=== PATIENT | male | born 1970 | race Two or more races ===

== ENCOUNTER 2020-12-14 08:36 | Outpatient (REF) | payer MEDICARE, MEDICAID, SELFPAY ==
[2020-12-14 09:12] LABS: COVID-19 Test Negative (Negative)
== END 2020-12-14 08:37 | disposition home or self-care (01) ==
LOC: HO.LAB 08:36
PROVIDERS: Visit Provider Internal Medicine
DX: Z20.822 Contact with and (suspected) exposure to COVID-19 (principal)
CPT/HCPCS: 36415; 87635; C9803

== ENCOUNTER 2020-12-22 11:17 | Outpatient (REF) | payer MEDICARE, MEDICAID, SELFPAY | END 2020-12-22 11:18 | disposition home or self-care (01) | LOC: HO.LAB 11:17 | PROVIDERS: Visit Provider Internal Medicine | DX: Z20.822 Contact with and (suspected) exposure to COVID-19 (principal) | CPT/HCPCS: C9803; U0003; U0005 ==

== ENCOUNTER 2020-12-22 23:41 | Inpatient (IN) | payer MEDICARE, MEDICAID, SELFPAY ==
--- NOTE | ~2020-12-22 | CT_ITS ---
EXAMINATION: CT ABDOMEN AND PELVIS WITH CONTRAST CLINICAL INFORMATION: Periumbilical/right lower quadrant pain COMPARISON: None TECHNIQUE: Multidetector volumetric images were obtained from the superior aspect of the liver through the pubic symphysis following administration 85 mL of Omnipaque 350 intravenous contrast. Sagittal and coronal reformatted images were obtained on the technologist's workstation. Oral contrast: No This CT examination was performed using dose optimization techniques as appropriate, variously including the following: *Automated exposure control *Adjustment of mA and/or kV according to patient size (this includes techniques or standardized protocols for targeted exams where dose is matched to indication/reason for exam; i.e. extremities or head) *Use of iterative reconstruction technique DLP: 408 mGy-cm FINDINGS: LUNG BASES: The visualized lung bases are unremarkable. LIVER, GALLBLADDER, AND BILIARY TREE: The liver is normal in size, shape, and attenuation. No focal hepatic lesion or biliary ductal dilatation is present. The gallbladder is unremarkable with no evidence of radiopaque gallstones, gallbladder wall thickening, or obvious pericholecystic inflammatory changes. PANCREAS: Unremarkable. SPLEEN: Unremarkable. ADRENAL GLANDS: Unremarkable. KIDNEYS AND URETERS: The kidneys are normal in size, shape, and attenuation. No hydronephrosis, hydroureter, or calculi seen. No perinephric stranding. BLADDER: The bladder is partially distended with circumferential mild wall thickening. GASTROINTESTINAL TRACT: The stomach is unremarkable. Normal caliber small bowel. There is no obstruction. Abnormal appearance of the appendix. The appendix measures 0.9 cm in diameter. Wall thickening of the appendix with mild adjacent inflammatory change of the fat. Otherwise no colonic wall thickening or inflammatory change. No free air. No fluid collection. ABDOMINAL WALL: No significant hernia is appreciated. LYMPH NODES: Normal. VASCULAR: Normal caliber aorta with mild atherosclerotic calcification. PELVIC VISCERA: The prostate and seminal vesicles are unremarkable. OSSEOUS STRUCTURES: No acute or suspicious osseous abnormality. Mild degenerative change of the spine. CT/CT abdomen pelvis w con IMPRESSION: Acute appendicitis. No free air or fluid collection.
[2020-12-23] VITALS (17 sets, daily range): BP systolic 108–143; BP diastolic 56–80; PULSE 54–90; RESP 16–20; TEMP 36.4–36.9; O2SAT 95–100; BMI 22.8
--- NOTE | 2020-12-23 03:19 | ED.ABDPAIN ---
HPI - Abdominal Pain General Chief Complaint: Abdominal Pain Stated Complaint: ABD PAIN Time Seen by Provider: 12/23/20 00:39 Source: patient Mode of arrival: ambulatory History of Present Illness HPI narrative: 50-year-old male without significant past medical history except lifelong seizures who presents with periumbilical/right lower quadrant pain that started earlier today after patient ate [place] food and he suspected possible food contamination. However, he denies any nausea and vomiting (other than forcing himself to vomit because he felt like he needed to) as well as denies any diarrhea or urinary symptoms. Or patient states that the pain is intense and has persisted. Related Data Allergies Allergy/AdvReac Type Severity Reaction Status Date / Time No Known Allergies Allergy Verified 12/23/20 00:36 [No Known Allergies*] Review of Systems Review of Systems Pertinent positives and negatives as stated in HPI 10 point review systems is otherwise negative. Physical Exam Vital Signs: Vital Signs: Last Vital Signs Temp 98.5 F 12/23/20 04:50 Pulse 85 12/23/20 04:50 Resp 16 12/23/20 04:50 BP 139/73 12/23/20 04:50 Pulse Ox 97 12/23/20 04:50 Body Mass Index 22.8 VITAL SIGNS: Reviewed. GENERAL: Well developed, well nourished, in no acute distress. HEAD: Normocephalic/atraumatic EYES: PERRLA, EOMI OROPHARYNX: no oral lesions noted, posterior pharynx clear NECK: Supple, no adenopathy LUNGS: Normal breath sounds. No adventitious sounds or accessory muscle use. SpO2<98> CARDIOVASCULAR: Regular rate and rhythm without noted murmurs ABDOMEN: Soft, tenderness at periumbilical as well as with Kaley is without rebound, non-distended with bowel sounds. NEUROLOGIC: Alert and oriented x 4. Course Course Course Narrative: 50-year-old male with history and clinical presentation consistent with appendicitis and less likely renal colic. Review of all investigations of findings consistent with acute appendicitis, non perforated. This case was discussed with surgical services who is agreeable for admission. MDM - Abdominal Pain Lab Data Result diagrams: 12/23/20 03:39 12/23/20 03:39 Labs: Lab Results 12/23/20 12/23/20 12/23/20 Range/Units 03:39 03:39 03:39 WBC 15.6 H (4.8-10.8) X10*3/uL RBC 4.75 (4.60-5.80) X10*6/uL Hgb 14.5 (14.0-18.0) g/dl Hct 42.9 (42-52) % MCV 90.3 (80-98) fL MCH 30.5 (27.0-33.0) pg MCHC 33.8 (31.0-36.0) g/dl RDW 14.1 (11.0-16.0) % Plt Count 273 (160-400) X10*3/uL MPV 9.5 (9.4-12.4) fL Immature Gran % (Auto) 0.3 (0.0-0.4) % Neut % (Auto) 74.3 H (45-73) % Lymph % (Auto) 15.8 L (20-40) % [place] % (Auto) 7.3 (2-11) % Eos % (Auto) 1.8 (0-4) % Baso % (Auto) 0.5 (0-2) % Lymph # (Auto) 2.5 (1.2-4.9) X10*3/uL [place] # (Auto) 1.1 (0.1-1.2) X10*3/uL Eos # (Auto) 0.3 (0.0-0.4) X10*3/uL Baso # (Auto) 0.1 (0.0-0.2) X10*3/uL Abs Immat Gran (auto) 0.05 H (0.00-0.03) X10*3/uL Absolute Neuts (auto) 11.6 H (2.0-8.3) X10*3/uL Absolute Nucleated RBC 0.000 (0.0-0.012) X10*3/uL Nucleated RBC % (auto) 0.0 (0.0-0.2) /100WBC PT (10.8-13.0) SEC INR (0.9-1.1) Sodium 140 (135-145) mmol/L Potassium 4.4 (3.3-5.1) mmol/L Chloride 103 (96-108) mmol/L Carbon Dioxide 29 (22-29) mmol/L Anion Gap 12 (12-20) BUN 24 H (9-16) mg/dL Creatinine 1.21 (0.5-1.4) mg/dL Estim Creat Clear Calc 71.8 Estimated GFR > 60 Random Glucose 101 (60-115) mg/dL Calcium 9.8 (8.4-10.2) mg/dL Magnesium (1.6-2.6) mg/dL Total Bilirubin 0.4 (0.0-1.0) mg/dL AST 27 (5-37) U/L ALT 17 (0-40) U/L Alkaline Phosphatase 82 (39-117) U/L Total Protein 7.5 (6.5-8.0) g/dL Albumin 4.4 (3.5-5.0) g/dL Lipase 243 H (8-78) U/L 12/23/20 12/23/20 Range/Units 03:39 03:39 WBC (4.8-10.8) X10*3/uL RBC (4.60-5.80) X10*6/uL Hgb (14.0-18.0) g/dl Hct (42-52) % MCV (80-98) fL MCH (27.0-33.0) pg MCHC (31.0-36.0) g/dl RDW (11.0-16.0) % Plt Count (160-400) X10*3/uL MPV (9.4-12.4) fL Immature Gran % (Auto) (0.0-0.4) % Neut % (Auto) (45-73) % Lymph % (Auto) (20-40) % [place] % (Auto) (2-11) % Eos % (Auto) (0-4) % Baso % (Auto) (0-2) % Lymph # (Auto) (1.2-4.9) X10*3/uL [place] # (Auto) (0.1-1.2) X10*3/uL Eos # (Auto) (0.0-0.4) X10*3/uL Baso # (Auto) (0.0-0.2) X10*3/uL Abs Immat Gran (auto) (0.00-0.03) X10*3/uL Absolute Neuts (auto) (2.0-8.3) X10*3/uL Absolute Nucleated RBC (0.0-0.012) X10*3/uL Nucleated RBC % (auto) (0.0-0.2) /100WBC PT 12.5 (10.8-13.0) SEC INR 1.1 (0.9-1.1) Sodium (135-145) mmol/L Potassium (3.3-5.1) mmol/L Chloride (96-108) mmol/L Carbon Dioxide (22-29) mmol/L Anion Gap (12-20) BUN (9-16) mg/dL Creatinine (0.5-1.4) mg/dL Estim Creat Clear Calc Estimated GFR Random Glucose (60-115) mg/dL Calcium (8.4-10.2) mg/dL Magnesium 1.9 (1.6-2.6) mg/dL Total Bilirubin (0.0-1.0) mg/dL AST (5-37) U/L ALT (0-40) U/L Alkaline Phosphatase (39-117) U/L Total Protein (6.5-8.0) g/dL Albumin (3.5-5.0) g/dL Lipase (8-78) U/L Discharge Plan Discharge Clinical Impression: Acute appendicitis Patient Disposition: Admitted As Inpatient [facility] Past Medical History Source: nursing notes reviewed Medical History Seizures Social History Social History Alcohol intake: former Smoking Status: Current every day smoker Smoked in Last 30 Days: Yes Use of substances other than those prescribed or required for medical reasons: No Advance Directives: No
[2020-12-23 03:46] LABS: Basophils Absolute Auto 0.1 X10*3/uL (0.0-0.2); Basophils Percent Auto 0.5 % (0-2); Eosinophils Absolute Auto 0.3 X10*3/uL (0.0-0.4); Eosinophils Percent Auto 1.8 % (0-4); Hematocrit 42.9 % (42-52); Hemoglobin 14.5 g/dl (14.0-18.0); Imm Gran Abs Auto 0.05 X10*3/uL (0.00-0.03); Imm Gran Pct Auto 0.3 % (0.0-0.4); Lymphocytes Absolute Auto 2.5 X10*3/uL (1.2-4.9); Lymphocytes Percent Auto 15.8 % (20-40); MANUAL DIFF FLAG NO; Mean Corpuscular HGB Conc 33.8 g/dl (31.0-36.0); Mean Corpuscular Hemoglobin 30.5 pg (27.0-33.0); Mean Corpuscular Volume 90.3 fL (80-98); Mean Platelet Volume 9.5 fL (9.4-12.4); Monocytes Absolute Auto 1.1 X10*3/uL (0.1-1.2); Monocytes Percent Auto 7.3 % (2-11); Neutrophils Absolute Auto 11.6 X10*3/uL (2.0-8.3); Neutrophils Percent Auto 74.3 % (45-73); Platelet Count 273 X10*3/uL (160-400); Red Blood Count 4.75 X10*6/uL (4.60-5.80); Red Cell Distribution Width 14.1 % (11.0-16.0); White Blood Count 15.6 X10*3/uL (4.8-10.8)
[2020-12-23 03:52] LABS: INTERNATIONAL NORM RATIO 1.1 (0.9-1.1); Prothrombin Time 12.5 SEC (10.8-13.0)
--- NOTE | 2020-12-23 04:01 | PC.NURSE ---
IV inserted into right AC.
[2020-12-23 04:13] LABS: Alanine Aminotransferase 17 U/L (0-40); Albumin Level 4.4 g/dL (3.5-5.0); Alkaline Phosphatase 82 U/L (39-117); Anion Gap 12 (12-20); Aspartate Amino Transferase 27 U/L (5-37); Bilirubin Total 0.4 mg/dL (0.0-1.0); Blood Urea Nitrogen 24 mg/dL (9-16); Calcium 9.8 mg/dL (8.4-10.2); Carbon Dioxide 29 mmol/L (22-29); Chloride 103 mmol/L (96-108); Creatinine Clr Calc Pharmacy 71.8; Estimated Glomerular Filt Rate > 60; Glucose Random 101 mg/dL (60-115); Magnesium 1.9 mg/dL (1.6-2.6); Potassium 4.4 mmol/L (3.3-5.1); Sodium 140 mmol/L (135-145); Total Protein 7.5 g/dL (6.5-8.0)
[2020-12-23 04:31] LABS: Lipase 243 U/L (8-78)
[2020-12-23] MEDS: iohexoL 350 MG/ML 100 ML INFUS..BTL 85 ML IV (04:33)
--- NOTE | 2020-12-23 05:09 | PM.HPGS ---
History of Present Illness History of Present Illness Date of Service: 12/23/20 Chief complaint: ACUTE APPENDICITIS Narrative: Bret Toledo is a 50 year old male presenting with complaints of abdominal pain in the periumbilical region radiating to the right lower quadrant. Exam in the ED revealed tenderness in the right lower quadrant. WBC elevated to 15K. CT of the abdomen positive for inflammation of the appendix consistent for acute appendicitis, no free air. Review of Systems Constitutional: Constitutional: Denies chills, Denies fever(s), Denies headache(s) and Denies poor appetite ENT: Denies dizziness and Denies headache(s) Cardiovascular: Cardiovascular: Denies chest pain, Denies rapid heart rate, Denies palpitations and Denies slow heart rate Respiratory: Respiratory: Denies chest congestion, Denies cough, Denies pain on inspiration and Denies wheezing Gastrointestinal: Gastrointestinal: Reports abdominal pain, Denies bloating, Denies change in stool character, Denies constipation, Denies diarrhea, Reports nausea, Reports vomiting and Denies hematemesis Musculoskeletal: Musculoskeletal: Denies back pain, Denies arthralgias, Denies joint swelling and Denies numbness Integumentary/Breasts: Skin/Breast: Denies change in pigmentation, Denies erythema and Denies rash Neurologic: Denies dizziness, Denies headache(s) and Denies numbness Psychiatric: Psychiatric: Denies anxiety and Denies depression Endocrine: Endocrine: Denies palpitations Hematologic/Lymphatic: Hematologic/Lymphatic: Denies easy bleeding, Denies easy bruising and Denies lymphadenopathy Allergic/Immunologic: Allergic/Immunologic: Denies wheezing PMFSH Past Medical History Medical History Seizures Social History Social History Alcohol intake: former Smoking Status: Current every day smoker Smoked in Last 30 Days: Yes Use of substances other than those prescribed or required for medical reasons: No Have you been hit, kicked, punched, or otherwise hurt by someone within the past year? If so, by whom?: No Advance Directives: No Meds Allergies Allergy/AdvReac Type Severity Reaction Status Date / Time No Known Allergies Allergy Verified 12/23/20 00:36 [No Known Allergies*] Active Medications: Current Medications Generic Name Dose Route Start Last Admin Trade Name Freq PRN Reason Stop Dose Admin Piperacillin Sod/Tazobactam 50 mls @ 100 mls/hr 12/23/20 04:49 Sod 3.375 gm/ Sodium Chloride IV 12/23/20 05:18 ONCE ONE Sodium Chloride 1,000 mls @ 999 mls/hr 12/23/20 04:58 Ns IV 12/23/20 05:58 .Q1H1M STA Physical Exam Vital Signs: Vital Signs: Last Vital Signs Temp 98.5 F 12/23/20 04:50 Pulse 85 12/23/20 04:50 Resp 16 12/23/20 04:50 BP 139/73 12/23/20 04:50 Pulse Ox 97 12/23/20 04:50 Body Mass Index 22.8 Const: General: cooperative, comfortable and well developed Nutritional Appearance: well nourished Orientation/consciousness: patient oriented x3 Eyes: Sclerae: sclerae normal EOM: EOMs intact bilaterally Neck: Neck: Yes normal visual inspection Resp: Effort & Inspection: normal respiratory effort, no cough, no respiratory distress and no stridor Cardio: Jugular venous distension: no JVD GI: Inspection: Yes normal to inspection Palpation (GI): Soft to palpation, Tenderness to palpation present (GI) in the RLQ, at McBurney's point and Rovsing's sign positive, Guarding due to palpation present (GI) and Rigid due to palpation Skin: General skin exam: dry skin Rashes: no rashes Neuro: General: patient oriented x3 and no focal motor deficits Extrem: General: Yes full ROM and Yes no clubbing, cyanosis or edema Psych: Appearance: grossly normal Results Results Labs: Short CBC 12/23/20 Range/Units 03:39 WBC 15.6 H (4.8-10.8) X10*3/uL Hgb 14.5 (14.0-18.0) g/dl Hct 42.9 (42-52) % Plt Count 273 (160-400) X10*3/uL BMP 12/23/20 03:39 Sodium 140 Potassium 4.4 Chloride 103 Carbon Dioxide 29 BUN 24 H Creatinine 1.21 Calcium 9.8 Liver Function 12/23/20 Range/Units 03:39 Total Bilirubin 0.4 (0.0-1.0) mg/dL AST 27 (5-37) U/L ALT 17 (0-40) U/L Alkaline Phosphatase 82 (39-117) U/L Albumin 4.4 (3.5-5.0) g/dL Assessment and Plan (1) Acute appendicitis: Status: Acute 50 year old male patient presenting with complaints of abdominal pain in the right lower quadrant, found to have an elevated WBC and appendicitis by CT. Reviewed the findings in detail with the patient and recommended a laparoscopic or possible open appendectomy. After discussion of the procedure, risks, and alternatives, he consents to the surgery. He will be added onto the operative schedule for today.
[2020-12-23] MEDS: Piperacillin Sodium/Tazobactam 3.375 GM in 0.9 % Sodium Chloride 50 ML IV ×2 (05:43→11:46)
[2020-12-23] MEDS: ondansetron HCL 4 MG/2 ML VIAL IVPUSH (05:44)
[2020-12-23] MEDS: 0.9 % Sodium Chloride 1,000 ML 999 ML IV (05:44)
[2020-12-23] MEDS: Ketorolac Tromethamine 15 MG/ML VIAL IVPUSH (05:44)
[2020-12-23 06:19] LABS: COVID-19 Test Negative (Negative)
--- NOTE | 2020-12-23 07:55 | PC.NURSE ---
Pt sleeping in room at this time. Respirations even/unlabored bilaterally. No sign of distress
--- NOTE | 2020-12-23 08:23 | MHC.SHP ---
Pre-Procedural Eval Section A The patient is an INPATIENT: Yes Section B Chief Complaint: ACUTE APPENDICITIS Allergies: Allergies Allergy/AdvReac Type Severity Reaction Status Date / Time No Known Allergies Allergy Verified 12/23/20 00:36 [No Known Allergies*] Plan Diagnosis/Plan: Unchanged I have reviewed the history and physical and performed a pertinent physical examination on my patient. No changes have occurred unless specified.
--- NOTE | 2020-12-23 08:54 | HO.ANESPROP2 ---
[facility] Active Problems Active Problems: All Active Problems (Updated 12/23/20 @ 04:59 by Bushra Hampton MD) Acute appendicitis (Acute) Past Medical History Medical History Seizures Social History Social History Alcohol intake: former Smoking Status: Current every day smoker Meds Allergies Allergy/AdvReac Type Severity Reaction Status Date / Time No Known Allergies Allergy Verified 12/23/20 00:36 [No Known Allergies*] Active Medications: Current Medications Generic Name Dose Route Start Last Admin Trade Name Freq PRN Reason Stop Dose Admin Acetaminophen 650 mg 12/23/20 08:11 Acetaminophen 325 Mg Tablet PO Q6H PRN Pain, Mild (Pain Scale 1-3) Dextrose/Lactated Ringer's 1,000 mls @ 125 mls/hr 12/23/20 09:00 D5lr IVCONT .Q8H BUSHRA Piperacillin Sod/Tazobactam 50 mls @ 100 mls/hr 12/23/20 12:00 Sod 3.375 gm/ Sodium Chloride IV Q6H BUSHRA Morphine Sulfate 4 mg 12/23/20 08:11 Morphine Sulfate 4 Mg/Ml Cartridge IVPUSH Q4H PRN Pain, Severe (Pain Scale 7-10) Ondansetron HCl 4 mg 12/23/20 08:11 Ondansetron Hcl 4 Mg/2 Ml Vial IVPUSH Q8H PRN Nausea and Vomiting Oxycodone HCl 5 mg 12/23/20 08:11 Oxycodone Hcl Immed Release 5 Mg Tablet PO Q6H PRN Pain, Moderate (Pain Scale 4-6 Sodium Chloride 3 ml 12/23/20 08:11 0.9 % Sodium Chloride Flush 3 Ml Syringe IVFLUSH QSHIFT BUSHRA Zolpidem Tartrate 5 mg 12/23/20 08:11 Zolpidem Tartrate 5 Mg Tablet PO BEDTIME PRN Insomnia Exam Exam Date and Time: December 23, 2020 0854 Height,Weight and Vital Signs: Height 5 ft 8 in Weight 68.039 kg Last Vital Signs Temp 98.2 F 12/23/20 08:19 Pulse 69 12/23/20 08:19 Resp 18 12/23/20 08:19 BP 121/68 12/23/20 08:19 Pulse Ox 97 12/23/20 08:19 Pertinent Lab Results Pertinent Lab Results: Laboratory Tests 12/23/20 12/23/20 12/23/20 03:39 03:39 03:39 WBC 15.6 H RBC 4.75 Hgb 14.5 Hct 42.9 MCV 90.3 MCH 30.5 MCHC 33.8 RDW 14.1 Plt Count 273 MPV 9.5 Immature Gran % (Auto) 0.3 Neut % (Auto) 74.3 H Lymph % (Auto) 15.8 L [place] % (Auto) 7.3 Eos % (Auto) 1.8 Baso % (Auto) 0.5 Lymph # (Auto) 2.5 [place] # (Auto) 1.1 Eos # (Auto) 0.3 Baso # (Auto) 0.1 Abs Immat Gran (auto) 0.05 H Absolute Neuts (auto) 11.6 H Absolute Nucleated RBC 0.000 Nucleated RBC % (auto) 0.0 PT INR Sodium 140 Potassium 4.4 Chloride 103 Carbon Dioxide 29 Anion Gap 12 BUN 24 H Creatinine 1.21 Estim Creat Clear Calc 71.8 Estimated GFR > 60 Random Glucose 101 Calcium 9.8 Magnesium Total Bilirubin 0.4 AST 27 ALT 17 Alkaline Phosphatase 82 Total Protein 7.5 Albumin 4.4 Lipase 243 H COVID-19 (CARON) COVID-19 [employer]itt[employer] Com 12/23/20 12/23/20 12/23/20 03:39 03:39 05:54 WBC RBC Hgb Hct MCV MCH MCHC RDW Plt Count MPV Immature Gran % (Auto) Neut % (Auto) Lymph % (Auto) [place] % (Auto) Eos % (Auto) Baso % (Auto) Lymph # (Auto) [place] # (Auto) Eos # (Auto) Baso # (Auto) Abs Immat Gran (auto) Absolute Neuts (auto) Absolute Nucleated RBC Nucleated RBC % (auto) PT 12.5 INR 1.1 Sodium Potassium Chloride Carbon Dioxide Anion Gap BUN Creatinine Estim Creat Clear Calc Estimated GFR Random Glucose Calcium Magnesium 1.9 Total Bilirubin AST ALT Alkaline Phosphatase Total Protein Albumin Lipase COVID-19 (CARON) Negative COVID-19 Clin Com See Note Airway Mallampati Class: III TM Dist: >3cm Neck ROM: Full Adult Head Mouth w/Numbe Teeth: 1. Loose Loose/Missing/Broken Teeth: Yes (Poor dentition, multiple missing and decaying teeth) Heart: RRR Lungs: NL Assessment and Plan Assessment Anesthesia Assessment: Anesthesia Plan Discussed and Chart Reviewed Final Anesthetic Review NPO: Yes ASA Class: II and Emergency Final Preanesthetic Review: No Changes in Pt Med Stat, Meds/Allgs Chart Reviewed, Consent Obtained/Reviewed and Anes Risks/Benef Reviewed Procedure Risk: Low Anesthetic Plan Anesthetic Plan: GA Disposition: Standard PACU
--- NOTE | 2020-12-23 10:34 | W.PM.OPN ---
Operative Note Operative Note Date of Service: 12/23/20 Narrative: Preoperative diagnosis: Acute appendicitis Postoperative diagnosis: Same Procedure: Laparoscopic appendectomy Surgeon: Rachid Orta MD Button Cutting Machine Operator: None Anesthesia: General endotracheal Indications for procedure: 42-year-old male patient presenting with complaints of abdominal pain in the right lower quadrant and periumbilical region. Patient was found to be tender in the right lower quadrant with a positive Rovsing sign. CT of the abdomen and pelvis felt to be suggestive of acute appendicitis without perforation. Operative findings: Minimally inflamed appendix located along the right gutter adjacent to the cecum without abscess or perforation Specimen: Appendix Estimated blood loss: 3 mL Complications: None Procedure details: Patient was brought to the OR and placed in a supine position. After administering general anesthesia the patient's abdomen was prepped with ChloraPrep and draped in a sterile fashion. A surgical time-out was called and consent confirmed. Patient received preoperative antibiotics (cefotetan 2 g) and Venodyne boots were in place. Local anesthesia consisting of 0.5% Sensorcaine with epinephrine was infiltrated in periumbilical region. A 5 mm incision was made below the umbilicus and carried down through subcutaneous tissue. A Veress needle was then inserted while elevating abdominal cavity with towel clips. After a positive drop test the abdomen was insufflated to a pressure of 15 mm of mercury. The Veress needle was removed and a 5 mm trocar inserted. The camera was then inserted in the abdomen explored. A 2nd 5 mm trocars placed in the lower midline. A 12 mm trocar was then placed in the left lower quadrant. The patient was then placed in a Trendelenburg position and rotated to the left. The appendix was identified in the right lower quadrant and brought up using blunt dissecting clamps. The mesentery of the appendix was then divided using the LigaSure. The appendiceal artery was cauterized and divided using the LigaSure. Dissection was continued down to the base of the cecum. An Endo-VIKI stapler with a purple reload was then used to divide the appendix at the base with the cecum. The appendix was then placed in Endo-Catch bag and brought out through the left lower quadrant incision. The abdomen was then irrigated with saline solution and suctioned dry. A small bleeder was noted adjacent to the appendix; this was ligated using a hemoclip x2. Wounds were again checked for for hemostasis, which was confirmed. CO2 was then evacuated from the abdominal cavity and all trocars removed. Fascia was closed in the left lower quadrant incision using a [id number] 0 Polysorb suture. Skin was closed at all incisions using a subcuticular 4-0 Polysorb suture. Steri-Strips 2 x 2 gauze and Tegaderm were then applied. The patient tolerated the procedure well. Sponge, instrument, needle counts reported as correct. The patient was transferred to PACU in stable condition.
[2020-12-23] MEDS: Dextrose 5 % and Lactated Ring 1,000 ML 125 ML IVCONT (11:11)
[2020-12-23] MEDS: Nicotine 21 MG PATCH.TD24 TRANSDERMA (15:59)
[2020-12-23] MEDS: oxyCODONE HCl Immed Release 5 MG TABLET PO (18:26)
--- NOTE | 2021-01-02 14:36 | P.DS_ITS ---
DS: Providers Provider Date of Service: 12/23/20 Date of admission: 12/23/20 07:54 Date of discharge: 12/23/20 Primary care physician: Gayla Physician Admitting clinician: Rachid Orta Discharging clinician: Rachid Orta DS: Diagnosis Discharge Diagnosis (1) Acute appendicitis: Status: Resolved DS: Medications Discharge Medications Home Medications: Home Medications Medication Instructions Recorded Confirmed carbamazepine [Tegretol] 400 mg PO BID 12/23/20 12/23/20 Previous Rx's Medication Instructions Recorded oxycodone 5 mg PO Q6H PRN #14 tab 12/23/20 DS: Summary Hospital Course Hospital Course: Bret Toledo is a 50 year old male presenting with complaints of abdominal pain in the periumbilical region radiating to the right lower quadrant. Exam in the ED revealed tenderness in the right lower quadrant. WBC elevated to 15K. CT of the abdomen positive for inflammation of the appendix consistent for acute appendicitis, no free air. Patient was admitted to the surgical service and preparation made for a laparos copic appendectomy. He underwent the laparoscopic appendectomy on the day of admission, 12/23/2020. Operative findings were consistent with acute appendicitis without evidence of an abscess. He underwent a laparoscopic appendectomy and tolerated the procedure well. Postoperatively the patient felt much improved with improved abdominal pain. He was prescribed a nicotine patch due to his tobacco use. He requested to be discharged to home. His wounds were clean, dry, and intact. His vital signs were stable and he was subsequently discharged to home. He will follow up in the office in approximately 1 week. I recommended avoiding lifting greater than 10 lb for the 1st 2 weeks following the surgery. He may resume regular diet as tolerated. He should call for fever, chills, nausea, vomiting, or other concerns. Time Spent with Patient Time attestation: Total time spent providing and/or coordinating discharge se rvices: Discharge coordination time: Less than 30 minutes Physical Exam Vital Signs: Vital Signs: Last Vital Signs Temp 98.1 F 12/23/20 19:18 Pulse 65 12/23/20 19:18 Resp 20 12/23/20 19:18 BP 118/60 12/23/20 19:18 Pulse Ox 96 12/23/20 19:18 Body Mass Index 22.8 Const: General: cooperative, comfortable, no acute distress and well developed Chest: Chest palpation & inspection: normal inspection of the chest Resp: Effort & Inspection: normal respiratory effort, no stridor and not tachypneic Auscultation: no wheezes GI: Other: Abdomen is soft and nondistended. Incisions are clean and intact with intact Tegaderm dressings. Skin: Other: Warm, dry, no rash Extrem: General: Yes no clubbing, cyanosis or edema DS: Data Data Completed and Pending Completed studies during hospitalization [Text1]: Pending at discharge 12/23/20 10:26 Surgical [PTH] Routine Procedures Resection of Appendix, Percutaneous Endoscopic Approach (12/23/20) Discharge Plan Discharge Patient Disposition: Home, Self-Care Discharge Diagnosis: Acute Appendicitis Referrals: Rachid Orta MD [Physician] - 2 Weeks Physician,None [Primary Care Provider] - 1 Week Discharge Medications: New oxycodone 5 mg Tablet 5 mg PO Q6H PRN (Reason: abdominal pain) Qty: 14 RF: 0 Continued carbamazepine [Tegretol] 200 mg tablet 400 mg PO BID RF: 0 Discharge Orders: Discharge Order (Routine); Ordered 12/23/20 Ordered By: Rachid Orta Diet: regular diet Activity on Discharge: No heavy lifting Stand Alone Forms: Patient Portal Discharge page Care Plan Goals: Return to normal activity and diet Health Concerns: Acute appendicitis Plan of Treatment: Laparoscopic appendectomy Assessment: Acute appendicitis Discharge Date/Time: 12/23/20 21:18
== END 2020-12-23 21:18 | disposition home or self-care (01) | DRG 343 ==
LOC: HO.ED 12-23 04:59 → HO.EDOVER 12-23 07:47 → HO.SSS 12-23 10:15 → HO.SSSA 12-23 10:17 → HO.S3 12-23 12:34
PROVIDERS: Admitting Provider Surgery; Emergency Provider Student in an Organized Health Care Education/Training Program; Visit Provider Surgery
PROC: 0DTJ4ZZ Resection of Appendix, Percutaneous Endoscopic Approach (ICD-10-PCS; CPT 44970; principal; 2020-12-23 09:30)
DX: K35.80 Unspecified acute appendicitis (principal); F17.210 Nicotine dependence, cigarettes, uncomplicated; Z71.6 Tobacco abuse counseling; Z20.822 Contact with and (suspected) exposure to COVID-19; Z79.899 Other long term (current) drug therapy
CPT/HCPCS: 36415; 74177; 80053; 83690; 83735; 85025; 85610; 87635; 88304; 96365; 96375; 99285; C9803; J1100; J1170; J1885; J2250; J2405; J2543; J3010; Q9967; U0003; U0005

== ENCOUNTER 2021-04-25 17:34 | Emergency (ER) | payer MEDICARE, MEDICAID, SELFPAY ==
[2021-04-25 18:01] VITALS: BP 134/71; PULSE 85; RESP 18; TEMP 36.7; O2SAT 97; BMI 26.5
== END 2021-04-25 19:45 | disposition left against medical advice (07) ==
PROVIDERS: Emergency Provider Emergency Medicine
DX: S00.86XA Insect bite (nonvenomous) of other part of head, initial encounter (principal); W57.XXXA Bitten or stung by nonvenomous insect and other nonvenomous arthropods, initial encounter; Y93.9 Activity, unspecified; Y92.9 Unspecified place or not applicable; Y99.0 Civilian activity done for income or pay
CPT/HCPCS: 99281; 99282

== ENCOUNTER 2021-06-21 11:36 | Emergency (ER) | payer MEDICARE, MEDICAID, SELFPAY ==
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
[2021-06-21 11:56] VITALS: BP 146/90; PULSE 96; O2SAT 100
[2021-06-21 12:02] VITALS: BP 135/87; PULSE 93; RESP 16; TEMP 36.5; O2SAT 95; BMI 25.7
[2021-06-21] MEDS: Acetaminophen 325 MG TABLET 975 MG PO (12:41)
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
== END 2021-06-21 14:00 | disposition home or self-care (01) ==
PROVIDERS: Emergency Provider Emergency Medicine Emergency Medical Services
DX: S63.501A Unspecified sprain of right wrist, initial encounter (principal); S06.0X9A Concussion with loss of consciousness of unspecified duration, initial encounter; S13.4XXA Sprain of ligaments of cervical spine, initial encounter; S63.91XA Sprain of unspecified part of right wrist and hand, initial encounter; S83.92XA Sprain of unspecified site of left knee, initial encounter; Y04.8XXA Assault by other bodily force, initial encounter; Y93.9 Activity, unspecified; Y92.009 Unspecified place in unspecified non-institutional (private) residence as the place of occurrence of the external cause; Y99.9 Unspecified external cause status
CPT/HCPCS: 70450; 70486; 72125; 73110; 73130; 73564; 99284

== ENCOUNTER 2022-06-18 02:13 | Emergency (ER) | payer MEDICARE, MEDICAID, SELFPAY ==
[2022-06-18 02:19] VITALS: BP 142/72; PULSE 102; RESP 16; O2SAT 98; BMI 27.1
--- OUTSIDE RECORDS SUMMARY | 2022-06-18 04:36 | XMS_ITS | Continuity of Care Document ---
:1970 Demographics Address [address] [facility] [address] [place] [address] Mobile Preferred Language so Marital Status Single Oriental Orthodox Affiliation Judaism Race Unknown Ethnic Group or Author Organization [facility] Address [address] [place] [address]- Care Team Providers Name Role Phone Kay CHURCHILL, Titus Primary Care Physician Encounter [facility] Date(s): 12/30/20 - 01/29/21 [facility] [address] [place] [id number]- Attending Physician: Chris Cummings Admitting Physician: AdmChris valle Referring Physician: Admtr, Chris Allergies, Adverse Reactions, Alerts No Known Medication Allergies Immunizations Given and Recorded Vaccine Date Status Refusal Reason tetanus/diphtheria/pertussis, acel(Tdap) 09/28/15 Given influenza virus vaccine, inactivated1 09/22/14 Given influenza virus vaccine, inactivated2 06/20/10 Given 1Result Comment: [09/22/2014] fluarix trivalent 2014-152Admin Note: vis given 04/11/10 Medications albuterol CFC free 90 mcg/inh inhalation aerosol 2, puffs, Inhalation, 4 times a day, PRN, # 1 each, Refills 1, Tot. Refills 1, Maintenance, :14:00 EDT, Route to Pharmacy Electronically, [id number], [id number], 173, cm, 12/30/20 7:44:00 EDT, Height Start Date: 12/30/20 Status: Orderednicotine 21 mg/24 hr transdermal film, extended release 1 patch, Topically, Daily, no smoking with patch, # 30 patch, 1 Refills, Maintenance, 12/30/20 8:15:00 EDT, Patch, [facility], 1 patch Topically Daily,Instr:no smoking with patch, 173, cm, 12/30/20 7:44:00 EDT, Height Start Date: 12/30/20 Status: OrderedTEGretol 200 mg oral tablet 400 mg, 2, tablet, By Mouth, 2 times a day, NO SUBSTITUTION, BRAND NAME MEDICALLY NECESSARY PATIENT HAS SEIZURES ON GENERIC, # 360 tablet, Refills 1, Tot. Refills 1, Maintenance, 12/30/20 8:19:00 EDT, Route to Pharmacy Electronically, [facility]/pharmacy... Start Date: 12/30/20 Stop Date: 06/28/21 Status: Ordered Problem List Condition Effective Dates Status Health Status Informant Asthma(Confirmed) Active Seizure(Confirmed) Active Tobacco dependence(Confirmed) Active Social History Social History Type Response Smoking Status Current every day smoker; Ty pe: Cigarettes entered on: 01/13/16 Sex
--- OUTSIDE RECORDS SUMMARY | 2022-06-18 04:36 | XMS_ITS | Continuity of Care Document ---
:1970 Demographics Address [address] [facility] [address] [place] [address] Mobile Preferred Language so Marital Status Single Roman Catholic Affiliation Zoroastrian Race White Ethnic Group or Author Organization [facility] Address [address] [place] [address]- Care Team Providers Name Role Phone Kay CHURCHILL, Titus Primary Care Physician Encounter [facility] Date(s): 07/03/21 - 08/09/21 [facility] [address] [place], [place] [address] Attending Physician: Oneal Gray MD Admitting Physician: Oneal Gray MD Allergies, Adverse Reactions, Alerts No Known Medication Allergies Immunizations Given and Recorded Vaccine Date Status Refusal Reason SARS-CoV-2 (COVID-19) mRNA-1273 vaccine 01/29/21 Recorded SARS-CoV-2 (COVID-19) mRNA-1273 vaccine 01/01/21 Recorded tetanus/diphtheria/pertussis, acel(Tdap) 09/28/15 Given influenza virus vaccine, inactivated1 09/22/14 Given influenza virus vaccine, inactivated2 06/20/10 Given 1Result Comment: [09/22/2014] fluarix trivalent [id number] Note: vis given 04/11/10 Medications albuterol CFC free 90 mcg/inh inhalation aerosol 2, puffs, Inhalation, 4 times a day, PRN, # 6.7 Gm, Refills 3, Tot. Refills 3, Maintenance, 06/19/2115:43:00 EDT, Route to Pharmacy Electronically, [id number], [id number], 173, cm, 06/19/21 15:05:00 EDT, Height Start Date: 06/19/21 Stop Date: 10/17/21 Status: Orderednicotine 2 mg oral transmucosal gum 1 each = 2 mg, Chew, Every 2 hours, PRN as needed for smoking cessation, for 12 week(s), # 160 each,0 Refills, Acute 09/11/21 15:45:00 EST, 06/19/21 15:45:00 EDT, Gum, [id number], Partial fillupon patient request if the prescription is for a... Start Date: 06/19/21 Stop Date: 09/11/21 Status: Orderednicotine 21 mg/24 hr transdermal film, extended release 1 patch, Topically, Daily, no smoking with patch remove patch after 24 hrs, # 21 patch, 1 Refills, Maintenance, 06/19/21 15:46:00 EDT, Patch, [facility]pharmacy [facility][id number], 1 patch Topically Daily,x6 week(s),Instr:no smoking with patch; remove patch after 24 hr... Start Date: 06/19/21 Stop Date: 09/11/21 Status: OrderedSymbicort 80mcg/4.5mcg Inhaler 2, puffs, Inhalation, 2 times a day, # 10.2 Gm, Refills 1, Tot. Refills 1, Maintenance, 06/19/21 15:42:00 EDT, Aerosol, Route to Pharmacy Electronically, [id number], [facility] #[id number], 173, cm, 06/19/21 15:05:00 EDT, Height Start Date: 06/19/21 Stop Date: 08/18/21 Status: OrderedTEGretol 200 mg oral tablet 400 mg, 2, tablet, By Mouth, 2 times a day, NO SUBSTITUTION, BRAND NAME MEDICALLY NECESSARY PATIENT HAS SEIZURES ON GENERIC labs due orders in the system. please go to any [facility] lab, # 360 tablet, Refills 1, Tot. Refills 1, Maintenance, 05/29... Start Date: 05/29/21 Stop Date: 11/25/21 Status: Ordered Problem List Condition Effective Dates Status Health Status Informant Asthma(Confirmed) Active Seizure(Confirmed) Active Tobacco dependence(Confirmed) Active Social History Social History Type Response Smoking Status Current every day smoker; Ty pe: Cigarettes entered on: 01/13/16 Sex
--- OUTSIDE RECORDS SUMMARY | 2022-06-18 04:36 | XMS_ITS | Continuity of Care Document ---
:[address] [facility] [address] [place] [address] Mobile Preferred Language so Marital Status Single Temple Affiliation Holiness Race Unknown Ethnic Group or Author Organization [facility] Address [address] [place] [address]- Care Team Providers Name Role Phone Kay CHURCHILL, Titus Primary Care Physician [facility]): [facility]21 - 05/11/21 [facility] [address] [place] [id number] Allergies, Adverse Reactions, Alerts No Known Medication [...] a day, PRN, # 1 each, Refills 5, Tot. Refills 5, Maintenance, 04/11/2113:13:00 EDT, Route to Pharmacy Electronically, [id number], [id number], 173, cm, 12/30/20 7:44:00 EDT, Height Start Date: 04/11/21 Status: Orderednicotine 21 mg/24 hr transdermal film, extended release 1 patch, Topically, Daily, no smoking with patch, # 30 patch, 1 Refills, Maintenance, 12/30/20 8:15:00 EDT, Patch, [id number], 1 patch Topically Daily,Instr:no smoking with patch, 173, cm, 12/30/20 7:44:00 EDT, Height Start Date: 12/30/20 Status: OrderedTEGretol 200 mg oral tablet 400 mg, 2, tablet, By Mouth, 2 times a day, NO SUBSTITUTION, BRAND NAME MEDICALLY NECESSARY PATIENT HAS SEIZURES ON GENERIC, # 360 tablet, Refills 1, Tot. Refills 1, Maintenance, 12/30/20 8:19:00 EDT, Route to [facility]ically, [facility] Start Date: 12/30/20 Stop Date: 06/28/21 Status: Ordered Problem List Condition Effective Dates Status Health Status Informant Asthma(Confirmed) Active Seizure(Confirmed) Active Tobacco dependence(Confirmed) Active Social History Social History Type Response Smoking Status Current every day smoker; Ty pe: Cigarettes entered on: 01/13/16 Sex
--- OUTSIDE RECORDS SUMMARY | 2022-06-18 04:36 | XMS_ITS | Continuity of Care Document ---
:1970 Demographics Address [address] [facility] [address] [place] [address] Mobile Preferred Language so Marital Status Single Mosque Affiliation Worship Race Unknown Ethnic Group or Author Organization [facility] Address [address] [place] [address]- Care Team Providers Name Role Phone Kay CHURCHILL, Titus Primary Care Physician [facility]): 12/14/20 - 01/13/21 [facility] [address] [place], [place] [address] Allergies, Adverse Reactions, Alerts No Known Medication Allergies Immunizations Given and Recorded Vaccine Date Status Refusal Reason tetanus/diphtheria/pertussis, acel(Tdap) 09/28/15 Given influenza virus vaccine, inactivated1 09/22/14 Given influenza virus vaccine, inactivated2 06/20/10 Given 1Result Comment: [09/22/2014] fluarix trivalent 2013-152Admin Note: vis given 04/11/10 Medications albuterol CFC free 90 mcg/inh inhalation aerosol 2, puffs, Inhalation, 4 times a day, PRN, # 1 each, Refills 1, Tot. Refills 1, Maintenance, :14:00 EDT, Route to Pharmacy Electronically, [id number], [id number], 173, cm, 12/30/20 7:44:00 EDT, [...] 12/30/20 8:19:00 EDT, Route to Pharmacy Electronically, [facility]/pharmacy... Start Date: 12/30/20 Stop Date: 06/28/21 Status: Ordered Problem List Condition Effective Dates Status Health Status Informant Asthma(Confirmed) Active Seizure(Confirmed) Active Tobacco dependence(Confirmed) Active Social History Social History Type Response Smoking Status Current every day smoker; Ty pe: Cigarettes entered on: 01/13/16 Sex
--- OUTSIDE RECORDS SUMMARY | 2022-06-18 04:36 | XMS_ITS | Continuity of Care Document ---
:1970 Demographics Address [address] [facility] [address] [place] [address] Mobile Preferred Language so Marital Status Single Amish Affiliation Christianity Race Unknown Ethnic Group or Author Organization [facility] Address [address] [place] [address]- Care Team Providers Name Role Phone Titus Villanueva MD Primary Care Physician Encounter [facility] Date(s): 03/03/20 - 04/02/20 [facility] [address] [place] [id number]- [facility] Allergies, Adverse Reactions, Alerts No Known Medication [...] each, Refills 1, Tot. Refills 1, Maintenance, 11/11/1909:20:33 EDT, Route to Pharmacy Electronically, [id number], [facility]/pharmacy #[id number] Start Date: 11/11/18 Status: Orderednicotine 21 mg/24 hr transdermal film, extended release 1 patch, Topically, Daily, no smoking with patch, # 30 patch, 1 Refills, Maintenance, 11/11/18 10:20:56 EDT, Patch, 1 patch Topically Daily,Instr:no smoking with patch Start Date: 11/11/18 Status: OrderedTEGretol 200 mg oral tablet 400 mg, 2, tablet, By Mouth, 2 times a day, NO SUBSTITUTION, BRAND NAME MEDICALLY NECESSARY PATIENT HAS SEIZURES ON GENERIC, # 360 tablet, Refills 4, Tot. Refills 4, Maintenance, 08/31/19 15:19:00 EST, Route to Pharmacy Electronically, [facility]/pharmacy... Start Date: 08/31/19 Status: Ordered Problem List Condition Effective Dates Status Health Status Informant Asthma(Confirmed) Active Seizure(Confirmed) Active Tobacco dependence(Confirmed) Active Social History Social History Type Response Smoking Status Current every day smoker; Ty pe: Cigarettes entered on: 01/13/16 Sex
--- OUTSIDE RECORDS SUMMARY | 2022-06-18 04:36 | XMS_ITS | Continuity of Care Document ---
:1970 [address] Address [address] [facility] [address] [place] [address] Mobile Preferred Language so Marital Status Single Moravian Affiliation Synagogue Race White Ethnic Group or Author Organization [facility] Address [address] [place] [address]- Care Team Providers Name Role Phone Kay CHURCHILL, Titus Primary Care Physician [facility]): 11/17/20 - 12/17/20 [facility] [address] [place], [place] [address] Allergies, Adverse Reactions, Alerts No Known [...] Maintenance, 11/11/1909:20:33 EDT, Route to Pharmacy Electronically, [id number], [facility]/pharmacy #[id number] Start Date: 11/11/18 Status: Orderednicotine 21 mg/24 [...] NECESSARY PATIENT HAS SEIZURES ON GENERIC, # 84 tablet, Refills 0, Tot. Refills 0, Maintenance, 12/15/20 21:24:00 EDT, Route to Pharmacy Electronically, [facility]/pharmacy... Start Date: 12/15/20 Stop Date: 01/05/21 Status: Ordered Problem List Condition Effective Dates Status Health Status Informant Asthma(Confirmed) Active Seizure(Confirmed) Active Tobacco dependence(Confirmed) Active Social History Social History Type Response Smoking Status Current every day smoker; Ty pe: Cigarettes entered on: 01/13/16 Sex
--- OUTSIDE RECORDS SUMMARY | 2022-06-18 04:36 | XMS_ITS | Continuity of Care Document ---
:1970 Demographics Address [address] [facility] [address] [place] [address] Mobile Preferred Language so Marital Status Single Alevism Affiliation Rastafarian Race White Ethnic Group or Author Organization [facility] Address [address] [place] [address]- Care Team Providers Name Role Phone Kay CHURCHILL, Titus Primary Care Physician [facility] 07/10/21 - 08/09/21 [facility] [address] [place], [place] [address] Attending Physician: Chris Cummings Admitting Physician: Admtr, ArMan Referring Physician: Admtr, Ar8 Allergies, Adverse Reactions, Alerts No Known Medication [...] Maintenance, 06/19/2115:43:00 EDT, Route to Pharmacy Electronically, [id number], [id number], 173, cm, 06/19/21 15:05:00 EDT, Height Start Date: 06/19/21 Stop Date: 10/17/21 Status: Orderednicotine 2 mg oral transmucosal gum 1 each = 2 mg, Chew, Every 2 hours, PRN as needed for smoking cessation, for 12 week(s), # 160 each,0 Refills, Acute 09/11/21 15:45:00 EST, 06/19/21 15:45:00 EDT, Gum, [facility]/pharmacy #[id number], Partial fillupon patient request if the prescription is for a... Start Date: 06/19/21 Stop Date: 09/11/21 Status: Orderednicotine 21 mg/24 hr transdermal film, extended release 1 patch, Topically, Daily, no smoking with patch remove patch after 24 hrs, # 21 patch, 1 Refills, Maintenance, 06/19/21 15:46:00 EDT, Patch, [facility]/pharmacy #[id number], 1 patch Topically Daily,x6 week(s),Instr:no smoking with patch; remove patch after 24 hr... Start Date: 06/19/21 Stop Date: 09/11/21 Status: OrderedSymbicort 80mcg/4.5mcg Inhaler 2, puffs, Inhalation, 2 times a day, # 10.2 Gm, Refills 1, Tot. Refills 1, Maintenance, 06/19/21 15:42:00 EDT, Aerosol, Route to Pharmacy Electronically, [id number], [facility]/pharmacy #[id number], 173, cm, 06/19/21 15:05:00 EDT, Height Start Date: 06/19/21 Stop Date: 08/18/21 Status: OrderedTEGretol 200 mg oral tablet 400 mg, 2, tablet, By Mouth, 2 times a day, NO SUBSTITUTION, BRAND NAME MEDICALLY NECESSARY PATIENT HAS SEIZURES ON GENERIC labs due orders in the system. please go to any [facility] lab, # 360 tablet, Refills 1, Tot. Refills 1, Maintenance, 05/29... Start Date: 05/29/21 Stop Date: 11/25/21 Status: Ordered Problem List Condition Effective Dates Status Health Status Informant Asthma(Confirmed) Active Seizure(Confirmed) Active Tobacco dependence(Confirmed) Active Social History Social History Type Response Smoking Status Current every day smoker; Ty pe: Cigarettes entered on: 01/13/16 Sex
--- OUTSIDE RECORDS SUMMARY | 2022-06-18 04:36 | XMS_ITS | Continuity of Care Document ---
:1970 Demographics Address [address] [facility] [address] [place] [address] Mobile Preferred Language so Marital Status Single Presybeterian Affiliation Hoahaoism Race Unknown Ethnic Group or Author Organization [facility] Address [address] [place] [address]- Care Team Providers Name Role Phone Kay CHURCHILL, Titus Primary Care Physician [facility]): 04[facility]21 - 05/11/21 [facility] [address] [place] [id number] Allergies, Adverse Reactions, Alerts No Known Medication [...] Maintenance, 04/11/2113:13:00 EDT, Route to Pharmacy Electronically, [id number], [id number], 173, cm, 12/30/20 7:44:00 EDT, [...]
--- OUTSIDE RECORDS SUMMARY | 2022-06-18 04:36 | XMS_ITS | Continuity of Care Document ---
:1970 [address] Address [address] [facility] [address] [place] [address] Mobile Preferred Language so Marital Status Single Anglican Affiliation Alevism Race Unknown Ethnic Group or Author Organization [facility] Address [address] [place] [address]- Care Team Providers Name Role Phone Kay CHURCHILL, Titus Primary Care Physician [facility] Date[facility]s): 05/24/21 - 06/23/21 [facility] [address] [place] [id number] Allergies, Adverse Reactions, Alerts No Known Medication [...] Maintenance, 06/19/2115:43:00 EDT, Route to Pharmacy Electronically, [id number], [facility]/pharmacy #[id number], 173, cm, 06/19/21 15:05:00 EDT, Height Start Date: 06/19/21 Stop Date: 10/17/21 Status: Orderednicotine 2 mg oral transmucosal gum 1 each = 2 mg, Chew, Every 2 hours, PRN as needed for smoking cessation, for 12 week(s), # 160 each,0 Refills, Acute 09/11/21 15:45:00 EST, 06/19/21 15:45:00 EDT, Gum, [facility]/pharmacy #[id number], Partial fillupon patient request if the prescription is for a... Start Date: 06/19/21 Stop Date: 09/11/21 Status: Orderednicotine 21 mg/24 hr transdermal film, extended release 1 patch, Topically, Daily, no smoking with patch remove patch after 24 hrs, # 21 patch, 1 Refills, Maintenance, 06/19/21 15:46:00 EDT, Patch, [facility]/pharmacy #[id number], 1 patch Topically Daily,x6 week(s),Instr:no smoking with patch; remove patch after 24 hr... Start Date: 06/19/21 Stop Date: 09/11/21 Status: OrderedSymbicort 80mcg/4.5mcg Inhaler 2, puffs, Inhalation, 2 times a day, # 10.2 Gm, Refills 1, Tot. Refills 1, Maintenance, 06/19/21 15:42:00 EDT, Aerosol, Route to Pharmacy Electronically, [id number], [id number], cm, 06/19/21 15:05:00 EDT, Height Start Date: 06/19/21 Stop Date: 08/18/21 Status: OrderedTEGretol 200 mg oral tablet 400 mg, 2, tablet, By Mouth, 2 times a day, NO SUBSTITUTION, BRAND NAME MEDICALLY NECESSARY PATIENT HAS SEIZURES ON GENERIC labs due orders in the system. please go to any [facility] lab, # 360 tablet, Refills 1, Tot. Refills 1, Maintenance, 05/29... Start Date: 05/29/21 Stop Date: 11/25/21 Status: Ordered Problem List Condition Effective Dates Status Health Status Informant Asthma(Confirmed) Active Seizure(Confirmed) Active Tobacco dependence(Confirmed) Active Social History Social History Type Response Smoking Status Current every day smoker; Ty pe: Cigarettes entered on: 01/13/16 Sex
== END 2022-06-18 04:35 | disposition left against medical advice (07) ==
PROVIDERS: Emergency Provider Emergency Medicine
DX: K08.89 Other specified disorders of teeth and supporting structures (principal)
CPT/HCPCS: 99281